=== PATIENT | male | born 1985 | race Caucasian/White ===

== ENCOUNTER → 2018-04-18 15:43 | Outpatient (REF) | payer BC, SELFPAY ==
[2018-04-18 18:57] LABS: Anion Gap 8.1 mmol/L (3-11); BUN 25 mg/dL (7-18); CO2 27.9 mmol/L (21.0-32.0); CREATININE 1.34 mg/dL (0.70-1.30); Calcium 8.8 mg/dL (8.5-10.1); Chloride 102 mmol/L (98-107); Glucose 84 mg/dL (70-100); Potassium 4.6 mmol/L (3.5-5.1); Sodium 138 mmol/L (136-145)
== END ==
LOC: NCHCN 15:43
PROVIDERS: PCP Family Medicine; Visit Provider Family Medicine
DX: N28.9 Disorder of kidney and ureter, unspecified (principal)
CPT/HCPCS: 80048